=== PATIENT | female | born 1990 | race American Indian/Alaskan Native ===

== ENCOUNTER 2021-01-30 18:41 | Emergency (ER) | payer OTHER ==
[2021-01-30] MEDS ORDERED: SODIUM CHLORIDE 0.9% 1000 ML 1,000 ML IV ONE (19:20)
--- NOTE | 2021-01-30 19:21 | Emergency Department Report ---
ED General Adult HPI - General Chief complaint: Chest Pain Stated complaint: CHEST PAIN Time Seen by Provider: 01/30/21 19:01 Source: patient Mode of arrival: Ambulatory Limitations: No Limitations - History of Present Illness Initial comments: Patient presents with a pleuritic chest pain. Etiology for this has not been known to her. She states that she had some pleuritic chest pain primarily left- sided. It did occur on both sides. It was primarily left-sided. It was worse with inspiration. She did not feel particularly short of breath. There is no nausea or vomiting. She had no trauma. Patient denied pain or swelling in the feet or ankles. She did not have any history of recent travel or immobility. She never had symptoms like this before. - Related Data Previous Rx's Medication Instructions Recorded Last Taken Type Ibuprofen [Motrin] 600 mg PO Q8H PRN #30 tablet 01/30/21 Unknown Rx Allergies Allergy/AdvReac Type Severity Reaction Status Date / Time No Known Allergies Allergy Verified 01/30/21 19:50 ED Review of Systems ROS: Stated complaint: CHEST PAIN Other details as noted in HPI Comment: All other systems reviewed and negative Constitutional: denies: fever Eyes: denies: vision change ENT: denies: throat pain Respiratory: denies: cough Cardiovascular: as per HPI Endocrine: denies: unexplained weight loss Gastrointestinal: denies: abdominal pain Genitourinary: denies: dysuria Musculoskeletal: denies: back pain Skin: denies: rash Neurological: denies: headache Hematological/Lymphatic: denies: easy bruising ED Past Medical Hx - Past Medical History Previous Medical History?: No - Family History Family history: no significant - Medications Home Medications: Home Medications Medication Instructions Recorded Confirmed Last Taken Type Ibuprofen [Motrin] 600 mg PO Q8H PRN #30 tablet 01/30/21 Unknown Rx ED Physical Exam - General Limitations: No Limitations, Other (Pulse ox noted and normal) General appearance: alert, in no apparent distress - Head Head exam: Present: atraumatic, normocephalic, normal inspection - Eye Eye exam: Present: normal appearance, EOMI. Absent: scleral icterus - ENT ENT exam: Present: normal exam, normal orophraynx, normal external ear exam - Neck Neck exam: Present: normal inspection. Absent: meningismus - Respiratory Respiratory exam: Present: normal lung sounds bilaterally. Absent: respiratory distress - Cardiovascular Cardiovascular Exam: Present: regular rate, normal rhythm - GI/Abdominal GI/Abdominal exam: Present: soft. Absent: tenderness - Extremities Exam Extremities exam: Present: normal capillary refill. Absent: calf tenderness - Back Exam Back exam: Absent: CVA tenderness (R), CVA tenderness (L) - Neurological Exam Neurological exam: Present: alert, oriented X3, CN II-XII intact, normal gait. Absent: motor sensory deficit - Psychiatric Psychiatric exam: Present: normal affect, normal mood - Skin Skin exam: Present: warm, dry ED Course Vital Signs 01/30/21 01/30/21 18:49 20:48 Temperature 98.1 F 98.6 F Pulse Rate 92 H 73 Respiratory 18 12 Rate Blood Pressure 112/35 Blood Pressure 128/76 [Left] O2 Sat by Pulse 100 100 Oximetry - Reevaluation(s) Reevaluation #1: 01/30/21 19:21 IV labs were ordered. EKG have been noted. Chest x-ray was ordered. Old records reviewed. Reevaluation #2: 01/31/21 00:26 Work-up was complete and the patient was discharged ED Medical Decision Making - Lab Data Result diagrams: 01/30/21 19:22 01/30/21 19:22 Rhythm strip: Normal sinus rhythm without ectopy per monitor observe 10 seconds. - EKG Data -: EKG Interpreted by Me - EKG Data 01/31/21 00:26 EKG shows normal sinus rhythm without ectopy. Intervals are normal including QRS and QT corrected. There is no ST elevation to suggest infarct. There is no ST depression suggestive of ischemia. - Radiology Data Radiology results: report reviewed - Medical Decision Making Patient presented secondary to chest pain. This was of uncertain etiology. There was no evidence of STEMI or NSTEMI. Patient did not have radiographic evidence of pneumonia or pneumothorax. There is no clinical evidence to suggest PE. She did not have a pulse deficit to suggest aortic dissection. Patient was treated symptomatically and referred for outpatient evaluation and follow- up. Critical Care Time: No Critical care attestation.: If time is entered above; I have spent that time in minutes in the direct care of this critically ill patient, excluding procedure time. ED Disposition Clinical Impression: Pleuritic chest pain Disposition: HOME / SELF CARE / HOMELESS Is pt being admited?: No Condition: Stable Instructions: Nonspecific Chest Pain, Adult, Pleurodynia Additional Instructions: Drink plenty water. Return for problems. Follow-up with your regular physician for recheck and further management. Follow-up with the referral physician if you do not have a regular physician. Prescriptions: Ibuprofen [Motrin] 600 mg PO Q8H PRN #30 tablet PRN Reason: Pain Referrals: AVINASH MASON MD [Primary Care Provider] - 3-5 Days Forms: Work/School Release Form(ED)
[2021-01-30 19:43] LABS: Hematocrit 34.9 % (30.3-42.9); Hemoglobin 11.1 gm/dl (10.1-14.3); Mean Corpuscular HGB Conc 32 % (30-34); Mean Corpuscular Volume 88 fl (79-97); Platelet Count 213 K/mm3 (140-440); Red Blood Count 3.96 M/mm3 (3.65-5.03); Red Cell Distribution Width 12.4 % (13.2-15.2)
[2021-01-30 19:56] LABS: Blood Urea Nitrogen 10 mg/dL (7-17); Calcium 8.8 mg/dL (8.4-10.2); Hemolysis Index 28
[2021-01-30 20:03] LABS: BUN/Creatinine Ratio 20
--- NOTE | 2021-01-30 20:04 | XRay Report ---
CHEST 2 VIEWS INDICATION: cp. COMPARISON: none FINDINGS: Support devices: None. Heart: Within normal limits. Lungs/pleura: No acute air space or interstitial disease. No pneumothorax. Additional findings: None. IMPRESSION: No acute findings. Signer Name: Lew Espinal Jr, MD Signed: 01/30/2021 8:00 PM Workstation Name: [id number]
[2021-01-30 20:49] VITALS: BP 128/76
--- NOTE | 2021-01-31 09:55 | Electrocardiograph Report ---
[facility] Test Date: 2021-01-30 Test Time: 18:41:49 Pat Name: MJ KELLEY Department: Room: Gender: F Mfts: KRISTAN : 1990 Requested By: CALVIN LUNA Order Number: [id number] Reading MD: Nelson Valles Measurements Intervals Romeo Rate: 91 P: 52 OK: 182 QRS: 3 QRSD: 94 T: 14 QT: 346 QTc: 427 Interpretive Statements Sinus rhythm No previous ECG available for comparison Electronically Signed On 01-31-2021 9:55:18 EST by Nelson Valles
== END 2021-01-30 21:05 | disposition home or self-care (01) ==
LOC: ED 18:41
DX: R07.89 Other chest pain (principal)
CPT/HCPCS: 36415; 71046; 80048; 85027; 85379; 93005; 96360; 99284; J7030; Q0162